=== PATIENT | male | born 1945 | race Caucasian/White ===

== ENCOUNTER 2018-02-04 12:06 | Inpatient (IN) | payer MEDICARE ==
--- NOTE | 2018-02-04 12:27 | ED PDOC ---
Arrival/HPI - General Chief Complaint: Weakness/Neurological Deficit Time Seen by Provider: 02/04/18 12:14 Historian: Patient, Spouse - History of Present Illness Narrative History of Present Illness (Text): 02/04/18 12:18 Peter Leal is a 72 year old male, whose past medical history includes Parkinson's disease, diabetes, pacemaker, atrial fibrillation, and hypertension , who presents to the Emergency department brought in by EMS accompanied by spouse status post episode of generalized weakness. 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 notes patient was unable to get up on his own secondary to weakness, and patient notes he felt near-syncopal. Patient states he currently feels better. notes over the past month has been experiencing intermittent bilateral lower extremity swelling and fatigue with exertion. Patient states he is unable to walk very far without feeling fatigued. Patient denies any fever, chills, chest pain, shortness of breath, headache, or any other complaints. PMD: Dr. Tse Mercerizer Machine Operator: Dr. Lott Neurologist: Dr. Andi Okeefe Time/Duration: Prior to Arrival Symptom Onset: Sudden Symptom Course: Improving Activities at Onset: Light Context: Sitting, Other (Mercerizer Machine Operator's office) Past Medical History - Provider Review Nursing Documentation Reviewed: Yes - Infectious Disease Hx of Infectious Diseases: None - Tetanus Immunization Tetanus Immunization: Unknown - Cardiac Hx Cardiac Disorders: Yes (CAD, afib) Hx Hypertension: Yes Hx Pacemaker: Yes - Neurological HX Cerebrovascular Accident: Yes (03/2016) - Endocrine/Metabolic Hx Diabetes Mellitus Type 2: Yes - Musculoskeletal/Rheumatological Hx Falls: No - Gastrointestinal Hx Gastrointestinal Disorders: Yes (CONSTIPATION) - Psychiatric Hx Depression: No Hx Emotional Abuse: No Hx Physical Abuse: No Hx Substance Use: No - Past Surgical History Past Surgical History: Non-Contributing - Surgical History Hx Cardiac Catheterization: Yes Other/Comment: Pacemaker implantation - Anesthesia Hx Anesthesia: No - Suicidal Assessment Feels Threatened In Home Enviroment: No Family/Social History - Physician Review Nursing Documentation Reviewed: Yes Family/Social History: Unknown Family HX Smoking Status: Never Smoked Hx Alcohol Use: Yes (HALF A GLASS OF WINE OCCASIONALLY) Hx Substance Use: No Hx Substance Use Treatment: No Allergies/Home Meds Allergies/Adverse Reactions: Allergies seasonal Allergy (Uncoded 02/04/18 17:43) CONGESTION Home Medications: Home Meds Medication Instructions Recorded Confirmed Atorvastatin Calcium [Lipitor] 10 mg PO DAILY 08/10/12 02/04/18 Metformin HCl 500 mg PO DAILY 08/10/12 02/04/18 Carbidopa/Levodopa [Carbidopa-Levo 1 each PO TID 03/29/16 02/04/18 ER 25-100 Tab] Clonidine HCl [Catapres] 0.1 mg PO DAILY 03/29/16 02/04/18 Valsartan [Diovan] 320 mg PO DAILY 03/29/16 02/04/18 Apixaban [Eliquis] 5 mg PO BID 07/02/16 02/04/18 Aspirin [Ecotrin] 81 mg PO DAILY 07/02/16 02/04/18 Cyanocobalamin [Vitamin B12 1000 1,000 mcg PO DAILY 07/02/16 02/04/18 mcg Tab] Mv-Min/Folic/Vit K/Lycop/Coq10 1 tab PO DAILY 07/02/16 02/04/18 [Daily Multivitamin Capsule] [place]-3 Fatty Acids [Fish Oil] 1,200 mg PO DAILY 07/02/16 02/04/18 Polyethylene Glycol [Polyox 17 gm PO BID 07/02/16 02/04/18 [id number]] Furosemide [Lasix] 20 mg PO DAILY 02/04/18 02/04/18 Iron Polysacch/Iron Heme Polyp 28 mg PO MWF 02/04/18 02/04/18 [Feosol Bifera 28 mg Caplet] Metoprolol Tartrate [Lopressor] 25 mg PO BID 02/04/18 02/04/18 Pramipexole Di-HCl [Pramipexole 0.125 mg PO TID 02/04/18 02/04/18 Dihydrochloride] Review of Systems - Review of Systems Constitutional: Fatigue, Other (+generalized weakness). absent: Fevers Eyes: absent: Eye Pain ENT: absent: Voice Changes Respiratory: absent: SOB, Cough, Sputum Cardiovascular: Edema, Other (+near-syncopal). absent: Chest Pain, [place] Gastrointestinal: absent: Abdominal Pain, Diarrhea, Vomiting Genitourinary Male: absent: Dysuria, Frequency, Hematuria, Urinary Output Changes Musculoskeletal: Other (+bilateral lower extremity swelling). absent: Back Pain , Neck Pain Skin: absent: Rash Neurological: Dizziness. absent: Headache, Focal Weakness Endocrine: Diaphoresis Physical Exam - Physical Exam Narrative Physical Exam (Text): Head: Atraumatic. Normocephalic. Eyes: PERRL. EOMI. Conjunctivae are not pale. ENT: Mucous membranes are moist and intact. Oropharynx is clear and symmetric. Neck: Supple. Full ROM. Positive JVD. No lymphadenopathy. Cardiovascular: Regular rate. Regular rhythm. Systolic murmur. No rubs, or gallops. Distal pulses are 2+ and symmetric. Pulmonary/Chest: No evidence of respiratory distress. Clear to auscultation bilaterally. No wheezing, rales or rhonchi. Abdominal: Soft and non-distended. There is no tenderness. No rebound, guarding, or rigidity. No organomegaly. Good bowel sounds. Back: No CVA tenderness. NO midline tenderness. Rectal: no gross bleeding noted Extremities: Bilateral lower extremity 1+ pitting edema. No cyanosis. No clubbing. Full range of motion in all extremities. No calf tenderness. Skin: Skin is warm and dry. No petechiae. No purpura. Neurological: No slurred speech. No facial droop. No acute pronator drift. No focal weakness. Baseline speech and mental status as per family. Fine tremor. Psychiatric: Good eye contact. Normal interaction, affect, and behavior. . Vital Signs Reviewed: Yes Vital Signs Temp Pulse Resp BP Pulse Ox 02/04/18 16:00 98 F 70 18 132/78 99 02/04/18 14:07 70 18 142/69 98 02/04/18 12:53 98.2 F 46 L 18 144/88 97 Temperature: Afebrile Blood Pressure: Hypertensive Pulse: Regular Respiratory Rate: Normal Appearance: Positive for: Well-Appearing, Non-Toxic, Comfortable Pain Distress: None Mental Status: Positive for: Alert and Oriented X 3 Medical Decision Making ED Course and Treatment: 02/04/18 12:18 Impression: 72 year old male brought in by EMS for episode of generalized weakness, diaphoresis, near-syncope INDUSTRY CONSULTANT. Differential Diagnosis included but are not limited to: LA vs. cardiac arrhythmia vs. symptomatic anemia vs. vertigo Plan: -- EKG -- Chest X-ray -- Labs, cardiac enzymes, BNP -- UA -- Monitor -- Reassess and disposition Progress Notes: Reviewed EKG, electronic ventricular paced rhythm at 72 bpm. is at bedside who witnessed episode. Patient and states that patient was his typical state of health prior to going for ROUTINE check up by Dr. Lott. He reports sudden onset of dizziness and feeling as if he may pass out. states that there was no change in mental status, no slurred speech, no headache, no facial droopin. On exam, there is no focal weakness and patient is awake and alert. Paced rhythm. NOT hypotensive with serial exams. He denies any acute chest pain or shortness of breath. He was monitored in ED with no symptomatic arrhythmias noted. states for several months he has been more fatigued and has had persistent leg edema. He denies chest pain. No pleuritic pain. No calf pain. No hypoxia noted. NO tachycardia noted. 02/04/18 12:45 Chest X-ray shows: LUNGS: No active pulmonary disease. PLEURA: No significant pleural effusion identified, no pneumothorax apparent. CARDIOVASCULAR: Heart size within range of normal. Re- demonstrated in situ bipolar pacemaker unchanged. OSSEOUS STRUCTURES: No significant abnormalities. VISUALIZED UPPER ABDOMEN: Normal. OTHER FINDINGS: None. IMPRESSION: No active disease. History and prior history reviewed with patient and . Currently I do not feel exam consistent with CVA as patient with no history of AMS or neuro deficits, and is at neuro baseline currently. 02/04/18 13:[address] Tse who is patient's PMD at [place], although family states he has seen physician in [place] and in [place] as well. Dr. Tse is aware and agrees with plan. Accepts pt in to his service. Family and patient updated with lab results and I have discussed with patient need for cardiac evaluation and monitoring, currently no history of change in mental status and no neuro deficits noted. 02/04/18 22:24 02/04/18 22:29 Reassessment Condition: Re-examined, Improved - Lab Interpretations Lab Results: 02/04/18 12:20 02/04/18 12:20 Lab Results 02/04/18 12:30: Urine Color Yellow, Urine Appearance Clear, Urine pH 7.0, Ur Specific [place] 1.015, Urine Protein Negative, Urine Glucose (UA) Negative, Urine Ketones Negative, Urine Blood Negative, Urine Nitrate Negative, Urine Bilirubin Negative, Urine Urobilinogen 1.0 H, Ur Leukocyte Esterase Negative 02/04/18 12:20: Sodium 144, Potassium 4.0, Chloride 102, Carbon Dioxide 28, Anion Gap 18, BUN 26 H, Creatinine 1.6 H, Est GFR ( Amer) 51, Est GFR ( Non-Af Amer) 42, Random Glucose 151 H, Calcium 9.3, Magnesium 2.1, Total Bilirubin 0.8, AST 28, ALT 15, Alkaline Phosphatase 42, Lactate Dehydrogenase 432, Total Creatine Kinase 49, Troponin I < 0.01, NT-Pro-B Natriuret Pep 847 H, Total Protein 7.3, Albumin 4.2, Globulin 3.0, Albumin/Globulin Ratio 1.4 02/04/18 12:20: PT 15.7 H, INR 1.36 H, APTT 30.2 02/04/18 12:20: WBC 6.8 D, RBC 4.57, Hgb 14.2, Hct 41.3 L, MCV 90.4, MCH 31.1, MCHC 34.4, RDW 13.2, Plt Count 183, MPV 10.6, Gran % 82.7 H, Lymph % (Auto) 13.3 L, [place] % (Auto) 3.6, Eos % (Auto) 0.3 L, Baso % (Auto) 0.1, Gran # 5.58, Lymph # (Auto) 0.9 L, [place] # (Auto) 0.2, Eos # (Auto) 0.0, Baso # (Auto) 0.01 02/04/18 12:18: POC Glucose (mg/dL) 149 H I have reviewed the lab results: Yes - RAD Interpretation Radiology Orders: 02/04/18 12:27 CHEST PORTABLE [RAD] Stat Power Hammer Operator: Radiologist - EKG Interpretation EKG Interpretation (Text): 02/04/18 22:23 electronic ventricular pacemaker rhythm, underlying rhythm is atrial fibrillation Interpreted by ED Physician: Yes Type: 12 lead EKG - Medication Orders Current Medication Orders: Apixaban (Eliquis) 5 mg PO DAILY [facility] PRN Reason: Protocol Aspirin (Ecotrin) 81 mg PO DAILY [facility] Atorvastatin Calcium (Lipitor) 10 mg PO DAILY [facility] Carbidopa/Levodopa (Sinemet Cr) 1 tab PO BID [facility] Last Admin: 02/04/18 19:09 Dose: 1 tab Furosemide (Lasix) 40 mg IVP DAILY [facility] Last Admin: 02/04/18 21:06 Dose: Insulin Human Regular (Humulin R Med) 0 units SC ACHS MELISSA PRN Reason: Protocol Last Admin: 02/04/18 22:14 Dose: Not Given Non-Admin Reason: Blood Sugar Parameter MAR Blood Glucose Document 02/04/18 22:14 SRE (Rec: 02/04/18 22:14 SRE [id number]) Blood Glucose Finger Stick Blood Glucose (70-120) 107 Metformin HCl (Glucophage) 500 mg PO DAILY MELISSA Sotalol HCl (Betapace) 80 mg PO BID MELISSA Last Admin: 02/04/18 19:10 Dose: Valsartan (Diovan) 320 mg PO DAILY MELISSA Discontinued Medications Pneumococcal Polyvalent Vaccine (Pneumovax 23 Vaccine) 0.5 ml IM .ONCE ONE Stop: 02/04/18 21:10 - Scribe Statement The provider has reviewed the documentation as recorded by the Scribe Awa Torres All medical record entries made by the Scribe were at my direction and personally dictated by me. I have reviewed the chart and agree that the record accurately reflects my personal performance of the history, physical exam, medical decision making, and the department course for this patient. I have also personally directed, reviewed, and agree with the discharge instructions and disposition. Disposition/Present on Arrival - Present on Arrival Any Indicators Present on Arrival: No History of DVT/PE: No History of Uncontrolled Diabetes: No Urinary Catheter: No History of Decub. Ulcer: No History Surgical Site Infection Following: None - Disposition Have Diagnosis and Disposition been Completed?: Yes Diagnosis: Near syncope Disposition: HOSPITALIZED Disposition Time: 14:30 Patient Plan: Admission, Telemetry Patient Problems: Current Active Problems Problem Status Onset Near syncope Acute Condition: FAIR
--- NOTE | 2018-02-04 12:46 | RAD ---
HISTORY: Near syncope COMPARISON: Comparison chest 07/02/2016 FINDINGS: LUNGS: No active pulmonary disease. PLEURA: No significant pleural effusion identified, no pneumothorax apparent. CARDIOVASCULAR: Heart size within range of normal. Re- demonstrated in situ bipolar pacemaker unchanged. OSSEOUS STRUCTURES: No significant abnormalities. VISUALIZED UPPER ABDOMEN: Normal. OTHER FINDINGS: None. IMPRESSION: No active disease.
[2018-02-04 12:49] LABS: BASO # 0.01 K/mm3 (0.0-2.0); BASO % 0.1 % (0.0-3.0); EOS % 0.3 % (1.5-5.0); GRAN # 5.58 (1.4-6.5); GRAN % 82.7 % (50.0-68.0); HEMOGLOBIN 14.2 g/dL (14.0-18.0); LYMPH # 0.9 (1.2-3.4); LYMPH % 13.3 % (22.0-35.0); MEAN CELL VOLUME 90.4 fl (80.0-105.0); MEAN CORPUSCULAR HEMOGLOBIN 31.1 pg (25.0-35.0); MEAN CORPUSCULAR HGB CONC 34.4 g/dl (31.0-37.0); MEAN PLATELET VOLUME 10.6 fl (7.0-11.0); MONO # 0.2 (0.1-0.6); MONO % 3.6 % (1.0-6.0); RBC 4.57 10^6/uL (3.5-6.1); RED CELL DISTRIBUTION WIDTH 13.2 % (11.5-14.5); WHITE BLOOD COUNT 6.8 10^3/ul (4.5-11.0)
[2018-02-04 12:59] LABS: ALB/GLOB RATIO 1.4 (1.1-1.8); ALBUMIN 4.2 g/dL (3.0-4.8); ALT/SGPT 15 U/L (7-56); AST/SGOT 28 U/L (17-59); BLOOD UREA NITROGEN 26 mg/dL (7-21); CALCIUM 9.3 mg/dL (8.4-10.5); GFR AFRICAN-AMERICAN 51; GFR NON-AFRICAN AMERICAN 42
[2018-02-04 13:11] LABS: B-TYPE NATRIURETIC PEPTIDE 847 pg/mL (0-450); TROPONIN I < 0.01 ng/mL
[2018-02-04 13:17] LABS: INR 1.36 (0.93-1.08); PARTIAL THROMBOPLASTIN TIME 30.2 Seconds (25.1-36.5); PROTHROMBIN TIME 15.7 SECONDS (9.4-12.5)
[2018-02-04 14:00] LABS: URINE BILIRUBIN NEGATIVE (NEGATIVE); URINE BLOOD NEGATIVE (NEGATIVE); URINE GLUCOSE (UA) NEGATIVE (NEGATIVE); URINE LEUKOCYTE ESTERASE NEGATIVE Leu/uL (NEGATIVE); URINE PROTEIN NEGATIVE mg/dL (<30 mg/dL)
[2018-02-04 14:06] LABS: URINE APPEARANCE CLEAR (CLEAR); URINE COLOR YELLOW (YELLOW)
[2018-02-04] MEDS: Carbidopa/Levodopa 25/100 CR PO SCH (19:09)
[2018-02-04] MEDS: Insulin Reg-MEDIUM-Coverage SC SCH ×2 (20:06→22:14)
[2018-02-04 21:09] VITALS: BMI 24.4
[2018-02-04] MEDS ORDERED: Pneumococcal 23-Valent Vaccine IM ONE (21:09)
--- NOTE | 2018-02-04 21:42 | CARD ---
APPROVED REPORT EKG Measurement Heart [id number] <Conclusion> Electronic ventricular pacemaker Underlying rhythm is A Fib
--- NOTE | 2018-02-05 00:47 | HP ---
DATE OF EXAM: 02/04/2018 I was called to the emergency room to see Peter. 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 Lott, sent to the emergency room by ambulance. He has a past medical history of being 72-year-old man who came from [place] with his with Parkinson disease, diabetes, pacemaker, atrial fibrillation, hypertension who had a witnessed syncopal event, very diaphoretic and was sent by ambulance to the emergency room. It was a sudden change. He has CAD, atrial fibrillation, hypertension, pacemaker, CVA, diabetes, constipation, pacemaker implantation, cardiac catheterization, hypertension in the family. SOCIAL HISTORY: Never smoked, drinks half a glass of wine every now and then. No substance abuse. ALLERGIES: HE HAS SEASONAL ALLERGIES. MEDICATIONS: He is on Lipitor, metformin, carbidopa, Catapres, Diovan and hydrochlorothiazide, Betapace, Eliquis, Ecotrin, vitamin B12, multivitamin, fish oil and polyethylene glycol. REVIEW OF SYSTEMS: He is very tired. He is fatigued, generalized weakness. No vision changes. No hearing changes. No sore throat. No cough or sputum. No congestion. No chest pain or palpitations, but syncopal episode. There is some nauseousness. No abdominal pain, diarrhea or vomiting. No problems urinating. He has bilateral lower extremity edema which he did not have the other day. He was taken off the hydrochlorothiazide. The said his skin is intact. No rashes or ulcers, she states. No headache. He is weak and diaphoretic. PHYSICAL EXAMINATION: VITAL SIGNS: He has a 98.2 temperature, 46 pulse, 18 respiratory rate, 144/88 blood pressure, 97% sat on room air. HEENT: Head is atraumatic, normocephalic. Extraocular muscles intact. Pupils equal and reactive to light. Throat is moist. NECK: Supple. HEART: Regular rate. Normal S1, S2. Systolic ejection murmur is present, 2/6 ejection murmur. LUNGS: Decreased breath sounds. Poor inspiration. No evidence of rales or rhonchi. ABDOMEN: Soft, nontender. Positive bowel sounds. No guarding, no rebound or CVA tenderness. EXTREMITIES: He has got +1/4 bilateral pitting edema of both lower extremities. SKIN: Warm and dry. No apparent rashes or ulcers. PSYCHIATRIC: Alert, awake, sluggish secondary to his Parkinson's, but more sluggish that usual. He is comfortable. No palpable lymphadenopathy appreciated. Thyroid midline. He is having multiple tests done in the ER. He has a 6.8 white count, 14.2 hemoglobin, 41.3 hematocrit with 183 platelets. 1.36 INR. Sodium 144, potassium 4, BUN is 26, creatinine 1.6. GFR is 42. Sugar is 151, calcium is 9.3, magnesium is 2.1, total bili is 0.8, AST 28, ALT is 50, alkaline phosphatase 42. Lactate dehydrogenase is 432. Total creatine kinase is 49. Troponin I is less than 0.01. BNP is high at 847, total protein is 7.3. Chest x-ray was clear. Had a consult with Cardiology, consult with Neurology. He will be on his medications, IV Lasix. We will check his labs tomorrow. Get physical therapy involved. The states he got very weak and might need rehab before he goes home. We will see how that works out, what they recommend. This is a patient with syncopal episode in the doctor's office, Dr. Lott and was sent here by ambulance for notably CHF and he is weak. Vazquez Tse DO MTDOdilia
[2018-02-05 06:11] VITALS: O2SAT 94
[2018-02-05 06:45] LABS: HEMOGLOBIN 14.8 g/dL (14.0-18.0); MEAN CELL VOLUME 89.5 fl (80.0-105.0); MEAN CORPUSCULAR HEMOGLOBIN 30.5 pg (25.0-35.0); MEAN CORPUSCULAR HGB CONC 34.1 g/dl (31.0-37.0); MEAN PLATELET VOLUME 10.7 fl (7.0-11.0); RBC 4.85 10^6/uL (3.5-6.1); RED CELL DISTRIBUTION WIDTH 13.1 % (11.5-14.5); WHITE BLOOD COUNT 7.9 10^3/ul (4.5-11.0)
[2018-02-05 07:17] LABS: ALB/GLOB RATIO 1.3 (1.1-1.8); ALBUMIN 4.2 g/dL (3.0-4.8); CALCIUM 9.4 mg/dL (8.4-10.5)
[2018-02-05] MEDS ORDERED: Potassium Chloride 20 mEq ER Tab PO ONE (08:48)
[2018-02-05] MEDS: Insulin Reg-MEDIUM-Coverage SC SCH ×4 (08:48→22:48)
[2018-02-05] MEDS: Carbidopa/Levodopa 25/100 CR PO SCH ×3 (11:23→22:50)
--- NOTE | 2018-02-05 13:38 | PN ---
DATE: 02/05/2018 SUBJECTIVE: I saw him this morning resting comfortably in bed. He slept well, he is much more alert, talking very well, asking questions. He has an appetite. He is back to himself, normal when I saw him at 6 to 8 months ago. MEDICATIONS: He is on Betapace; Diovan; Ecotrin; Eliquis; Glucophage; insulin coverage; potassium now ; Lasix 40 IV, which I think is making a big difference his fluid overloaded; Lipitor and Sinemet. PHYSICAL EXAMINATION: VITAL SIGNS: 98 temp, 66 pulse, 164/98 blood pressure. I will change his blood pressure medications right on, 18 respiratory rate, 94% O2 sat on nasal cannula. HEENT: His head is atraumatic, normocephalic. Eyes: Wide open. Throat is moist. NECK: Supple. He is very alert and oriented and talking to me nicely today. Yesterday, he was very sluggish. HEART: Regular rate. LUNGS: Decreased breath sounds, but clear. ABDOMEN: Soft. EXTREMITIES: No edema at this time. LABORATORY DATA: He has 146 sodium, potassium is 3.3, I gave him potassium rider. BUN 28, creatinine 1.7, GFR is 40, sugar is 118, calcium is 9.4, total bili is 0.9, AST is 28, ALT is 25, alkaline phosphatase 47, total protein is 7.3. White count is 7.9, hemoglobin 14.8, hematocrit 42.4, platelets of 202. PLAN: He is being seen by eventually Neuro and Cardio. They have not seen him yet to get their opinion. I ordered physical therapy, out of bed to chair. I am going to add a little bit of Norvasc 2.5 to his elevated blood pressure. See if that can help him, if that is under 90. Vazquez Tse DO ADEEL
[2018-02-05] MEDS ORDERED: Carbidopa/Levodopa 25/100 CR PO SCH (14:00)
--- NOTE | 2018-02-05 14:44 | CT ---
PROCEDURE: CT HEAD WITHOUT CONTRAST. HISTORY: syncopal episode COMPARISON: Unenhanced head CT 03/29/2016. TECHNIQUE: Axial computed tomography images were obtained through the head/brain without intravenous contrast. Radiation dose: Total exam DLP = 977.48 mGy-cm. This CT exam was performed using one or more of the following dose reduction techniques: Automated exposure control, adjustment of the mA and/or kV according to patient size, and/or use of iterative reconstruction technique. FINDINGS: HEMORRHAGE: No intracranial hemorrhage. BRAIN: No definite cortical edema or focal mass effect to suggest an acute or subacute brain infarction. And mild diffuse cerebral atrophy chronic microangiopathy are reiterated. However, the ventricular system appears moderately increased diffusely thin may indicate an element of communicating hydrocephalus/NPH. Further, transependymal edema is in question versus increase chronic microangiopathy. There is no suspicious extra-axial fluid collection appreciated in the posterior fossa contents exclusive of the 4th ventricle appear unremarkable. An interval small chronic infarct is identified in the left cerebellum. No midline shift appreciated in this exam. CALVARIUM: Unremarkable. PARANASAL SINUSES: Unremarkable as visualized. No significant inflammatory changes. MASTOID AIR CELLS: Unremarkable as visualized. No inflammatory changes. OTHER FINDINGS: None. IMPRESSION: Age-related degenerative changes are reiterated with potential increasing in periventricular chronic microangiopathy. However, interval normal pressure hydrocephalus is difficult to exclude including potential transependymal edema compared to prior head CT 03/29/2016. Interval small chronic infarct left cerebellum.
[2018-02-05] MEDS: POLYETHYLENE GLYCOL 3350 17 GM/Dose PACKET PO SCH (17:31)
--- NOTE | 2018-02-05 19:33 | CON ---
DATE: 02/05/2018 CARDIOLOGY CONSULTATION HISTORY: The patient is a 72-year-old male, who is sitting in my office and suddenly became markedly weak and was unable to stand. No loss of consciousness noted. The patient's past medical history is notable for atrial fibrillation with tachy-torrie syndrome. A pacemaker was placed. The patient is currently being treated with anticoagulation for his atrial fibrillation. The glucose which was tested by EMS when they arrived at the scene was 142. His previous evaluation included an echocardiogram that revealed a normal LV function with mild pulmonary hypertension. This was done in 2016. A stress test was performed at the same time, which showed good LV function and no evidence for ischemic disease. Currently, the patient is awake, alert, without chest pain, without shortness of breath. A 14-point review of systems was reviewed. No additional information was elicited. PHYSICAL EXAMINATION: VITAL SIGNS: Blood pressure is 164/98, heart rate in the 60s, a paced rhythm. NECK: Negative JVD. LUNGS: Without rales. HEART: S1, S2. EXTREMITIES: Without edema. LABORATORY DATA: Potassium is 3.4, BUN and creatinine is 28 and 1.7, glucose is 118. Hemoglobin is 14.8. IMPRESSION: 1. Near syncope. 2. History of chronic atrial fibrillation on anticoagulation. 3. Status post pacemaker for tachy-torrie syndrome. 4. Hypertension. 5. Diabetes mellitus. 6. Normal left ventricular function in the past, documented in 2016. PLAN: 1. Given these findings, we will have the pacemaker interrogated to rule out dysrhythmia. 2. Neurology has been called for evaluation. We will repeat an echocardiogram today. Zenon Lott MD
--- NOTE | 2018-02-05 21:26 | CARD ---
APPROVED REPORT EXAM: Two-dimensional and M-mode echocardiogram with Doppler and color Doppler. INDICATION Syncope 2D DIMENSIONS Left Atrium (2D)4.7 (1.6-4.0cm)IVSd1.3 (0.7-1.1cm) LVDd3.9 (3.9-5.9cm)PWd1.1 (0.7-1.1cm) LVDs2.7 (2.5-4.0cm)FS (%) 29.7 % LVEF (%)57.5 (>50%) M-Mode DIMENSIONS Aortic Root2.90 (2.2-3.7cm)Aortic Cusp Exc.1.90 (1.5-2.0cm) Aortic Valve AoV Peak Ilxrdlhs294.0cm/Herlinda Peak GR.5mmHg Mitral Valve E/A ratio0.0 TDI E/Lateral E'0.0E/Medial E'0.0 Tricuspid Valve TR Peak [id number] [id number] Peak Gr.14mmHg [id number] LEFT VENTRICLE The left ventricle is normal size. There is borderline concentric left ventricular hypertrophy. The left ventricular ejection fraction is within the normal range. Apical motion consistent with pacemaker activation. AFL RIGHT VENTRICLE The right ventricle is normal size. There is normal right ventricular wall thickness. The right ventricular systolic function is normal. ATRIA The left atrium is moderately dilated. The right atrium size is normal. AORTIC VALVE The aortic valve is normal in structure. No aortic regurgitation is present. There is no aortic valvular stenosis. MITRAL VALVE The mitral valve is normal in structure. There is no mitral valve regurgitation noted. TRICUSPID VALVE The tricuspid valve is normal in structure. There is trace tricuspid regurgitation. GREAT VESSELS The aortic root is normal in size. PERICARDIAL EFFUSION There is no pericardial effusion. <Conclusion> The left ventricle is normal size. There is borderline concentric left ventricular hypertrophy. The left ventricular ejection fraction is within the normal range. Apical motion consistent with pacemaker activation. The left atrium is moderately dilated.
--- NOTE | 2018-02-05 21:59 | CON ---
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 Patient was feeling passing out spell and diaphoretic. PAST MEDICAL HISTORY: Coronary artery disease, atrial fibrillation, hypertension, pacemaker, CVA and diabetes. SOCIAL HISTORY: Does not smoke. Drinks wine, half a glass. ALLERGIES: ONLY SEASONAL ALLERGIES. NO KNOWN DRUG ALLERGIES. REVIEW OF SYSTEMS: A 10-point review of systems was negative except as noted above. PHYSICAL EXAMINATION: HEENT: Normocephalic, atraumatic. NECK: Supple. NEUROLOGIC: Alert, awake, oriented x3. No aphasia. Cranial nerves II through XII are tested. Pupils are equal, reactive. EOM intact. Visual field full. No facial asymmetry. Tongue is midline. Motor examination, spontaneous movement of extremities noted. Deep tendon reflexes 1+. Both plantars are downgoing. Sensory appears intact. Mild rigidity and masked face suggestive of Parkinson's, and patient has difficulty ambulating, had syncopal episode. ASSESSMENT AND PLAN: We will do CAT scan of the head, and continue present management. We will follow up. Jonnie Crowley MD
[2018-02-06 06:35] LABS: HEMOGLOBIN 16.4 g/dL (14.0-18.0); MEAN CORPUSCULAR HEMOGLOBIN 31.5 pg (25.0-35.0); MEAN CORPUSCULAR HGB CONC 35.4 g/dl (31.0-37.0); MEAN PLATELET VOLUME 10.7 fl (7.0-11.0); RBC 5.2 10^6/uL (3.5-6.1)
[2018-02-06 06:39] VITALS: RESP 18
[2018-02-06 07:14] LABS: ALB/GLOB RATIO 1.4 (1.1-1.8); ALBUMIN 4.6 g/dL (3.0-4.8); CALCIUM 9.8 mg/dL (8.4-10.5)
[2018-02-06] MEDS ORDERED: Potassium Chloride 20 mEq ER Tab PO ONE (08:00)
[2018-02-06] MEDS: Insulin Reg-MEDIUM-Coverage SC SCH (08:45)
[2018-02-06] MEDS: Carbidopa/Levodopa 25/100 CR PO SCH (10:20)
[2018-02-06] MEDS: POLYETHYLENE GLYCOL 3350 17 GM/Dose PACKET PO SCH (10:21)
[2018-02-06 12:03] VITALS: BP 142/93; PULSE 82; TEMP 98.8
--- NOTE | 2018-02-06 12:17 | PN ---
DATE: 02/06/2018 CARDIOLOGY FOLLOWUP SUBJECTIVE: The patient is ambulating with a walker. PHYSICAL EXAMINATION: VITAL SIGNS: Blood pressure is 154/88, heart rate is paced in the 80s. NECK: Negative JVD. LUNGS: Without rales. HEART: Reveals S1, S2. EXTREMITIES: Without edema. LABORATORY DATA: Hemoglobin is 16, BUN and creatinine are 29 and 1.7, glucose 143. Pacemaker interrogation reveals during his episode of dizziness, his heart rate was rapid with atrial fibrillation. IMPRESSION: 1. Near syncope. 2. Rapid atrial fibrillation associated with his symptoms. 3. History of pacemaker placement for tachy-torrie syndrome. 4. Hypertension. 5. Diabetes mellitus. PLAN: Given these findings, the patient has had his beta-blockers increased. He is tolerating it. From a cardiac perspective, the patient can be discharged. Zenon Lott MD
--- NOTE | 2018-02-07 04:12 | DS ---
HISTORY OF PRESENT ILLNESS: Peter did quite well. He improved with his mentation and his blood pressure, and his CHF. He will be going home today. He is comfortable in bed. He is hungry. He has been seen by Cardiology and Neurology. PHYSICAL EXAMINATION: VITAL SIGNS: He has 98 temperature, 78 pulse, 150/80 blood pressure, 18 respiratory rate. HEENT: Head is atraumatic, normocephalic. HEART: Regular rate. LUNG: Clear to auscultation. ABDOMEN: Soft. EXTREMITIES: No edema. MEDICATIONS: He is on Betapace, Diovan, Ecotrin, Eliquis, Glucophage, Lasix, Lipitor, MiraLax, Norvasc, Sinemet and vitamin B12. LABORATORY DATA: He has 146 sodium; potassium is 3.2, I replaced the potassium; BUN 29, creatinine 1.7, GFR is 40, sugar is 143, calcium is 9.8, total bilirubin is 0.9, AST is 33, ALT is 16, alkaline phosphatase 55, total protein 7.9. White count 9, hemoglobin 16.4, hematocrit 46.3, platelets of 229. He was seen by Neurology and Cardiology. The CAT scan of the head did not show anything acute and will be discharged later this morning. Vazquez Tse DO
== END 2018-02-06 15:15 | disposition home or self-care (01) | DRG 310 ==
LOC: ED 12:06 → ERH 13:41 → 2RNO 16:16
PROVIDERS: ADMIT Family Medicine; ATTEND Family Medicine
PROC: 4B02XSZ Measurement of Cardiac Pacemaker, External Approach (ICD-10-PCS; principal; 2018-02-06)
DX: I48.2 Chronic atrial fibrillation (principal); R55 Syncope and collapse; G20 Parkinson's disease; I11.0 Hypertensive heart disease with heart failure; I50.9 Heart failure, unspecified; E11.9 Type 2 diabetes mellitus without complications; I25.10 Atherosclerotic heart disease of native coronary artery without angina pectoris; K59.00 Constipation, unspecified; I27.20 Pulmonary hypertension, unspecified; Z79.01 Long term (current) use of anticoagulants; Z86.73 Personal history of transient ischemic attack (TIA), and cerebral infarction without residual deficits; Z95.0 Presence of cardiac pacemaker